=== PATIENT | male | born 1990 | race Caucasian/White ===

== ENCOUNTER 2017-03-05 06:36 | Emergency (ER) | payer SELFPAY ==
[2017-03-05] MEDS ORDERED: Lidocaine 1% INJ* 10 MG/ML 30 ML SDV INJ ONE (07:34)
[2017-03-05] MEDS ORDERED: Lidocaine 1%* 5 ML VIAL ONE (07:36)
[2017-03-05 08:19] VITALS: BP 150/70
--- NOTE | 2017-03-05 08:28 | ED ---
James Yadav Angela, scribed for Kulwinder Escamilla MD on 03/05/17 at 0742 . Laceration/Wound HPI - HPI Summary HPI Summary: This pt is a 26 y/o right-hand dominant male presenting to [facility] c/o a laceration on his right hand s/p cut with a carbide blade today at 6:00 AM. 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 He states the blade was brand new. Pt notes his hand is not currently painful. He has soaked his hand while in the ED for 20 minutes and bleeding has been controlled. His last tetanus shot is UTD (3 years ago). Pt is allergic to Codeine, he gets a GI upset. Pt denies any other injuries, decreased ROM of right hand, neurological deficits. - History of Current Complaint Stated Complaint: RIGHT HAND LAC Hx Obtained From: Patient Mechanism of Injury: Sharp/Blunt Trauma - with a carbide blade Onset/Duration: Sudden Onset Aggravating: Nothing Alleviating: Other - soaking Pain Intensity: 0 Associated Signs & Symptoms: Redness Related Hx: Dominant Hand (Right) - Additional Pertinent History Primary Care Physician: [id number] - Allergy/Home Medications Allergies/Adverse Reactions: Allergies Allergy/AdvReac Type Severity Reaction Status Date / Time Codeine Allergy Heartburn Verified 03/05/17 06:42 PMH/Surg Hx/FS Hx/Imm Hx Endocrine/Hematology History: Denies: Hx Diabetes Cardiovascular History: Denies: Hx Hypertension, Hx Pacemaker/ICD Respiratory History: Reports: Hx Asthma - as child Sensory History: Denies: Hx Contacts or Glasses, Hx Hearing Aid Opthamlomology History: Denies: Hx Contacts or Glasses Psychiatric History: Denies: Hx Panic Disorder - Surgical History Surgery Procedure, Year, and Place: ear tubes, LEFT SHOULDER SURGERY, APPENDECTOMY Hx Anesthesia Reactions: No - Immunization History Date of Tetanus Vaccine: 2014 Date of Influenza Vaccine: unknown Infectious Disease History: No Infectious Disease History: Denies: Traveled Outside the [place] in Last 30 Days - Family History Known Family History: Positive: Diabetes - Social History Alcohol Use: Rare Substance Use Type: Reports: None Smoking Status (MU): Never Smoked Tobacco Review of Systems Negative: Fever, Chills Negative: Epistaxis Negative: Palpitations, Chest Pain Negative: Shortness Of Breath Negative: Vomiting, Nausea Genitourinary: Negative Negative: Decreased ROM, Edema Positive: Other - Laceration on right hand Negative: Headache, Weakness All Other Systems Reviewed And Are Negative: Yes Physical Exam - Summary Physical Exam Summary: The patient is well-nourished in no acute distress and in no acute pain. Pt's tetanus is up to date. The skin is warm and dry and skin color reflects adequate perfusion. HEENT: The head is normocephalic and atraumatic. Neck is supple with full range of motion and non-tender. Respiratory: Chest is non-tender. Lungs are clear to auscultation and breath sounds are symmetrical and equal. Cardiovascular: Hear is regular rate and rhythm. There is no murmur or rub auscultated. There is no peripheral edema and pulses are symmetrical and equal. Musculoskeletal: Extremities are non-tender with full range of motion. There is good capillary refill. There is no peripheral edema or calf tenderness elicited. In the right upper extremity there is a 2.5 cm laceration in the dorsum of the right hand, 3 mm in width and 3 mm in depth. There is full range of motion of the right hand, and is able to extend and flex his hand. Neurological: Patient is alert and oriented to person, place and time. No neurological deficits. Psychiatric: The patient has an appropriate affect and does not exhibit any anxiety or depression. Triage Information Reviewed: Yes Vital Signs On Initial Exam: Initial Vitals Temp Pulse Resp BP Pulse Ox 98 F 75 16 156/72 97 03/05/17 06:44 03/05/17 06:44 03/05/17 06:44 03/05/17 06:44 03/05/17 06:44 Vital Signs Reviewed: Yes - Cathay Coma Scale Coma Scale Total: 15 Procedures - Laceration/Wound Repair 1 Location: upper extremity - Right hand Description: Linear - with clean edges Anesthesia: 1.0%, Lido - 3 cc of 1% lidocaine Length, Depth and Shape: 2.5 cm (length) x 3 mm (width) x 3 mm (depth) Laceration/Wound Explored: clean, no foreign body removed, Other - Wound is down to the muscle, but the muscle is intact. Suture Type: Prolene - 4.0 Number of Sutures: 8 Diagnostics - Vital Signs Vital Signs Temp Pulse Resp BP Pulse Ox 03/05/17 06:44 98 F 75 16 156/72 97 - Laboratory Lab Statement: Any lab studies that have been ordered have been reviewed, and results considered in the medical decision making process. Laceration Repair Course/Dx - Course Course Of Treatment: This pt is a 26 y/o right-hand dominant male presenting to [facility] c/o a laceration on his right hand s/p cut with a carbide blade today at 6 :00 AM. 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 He states the blade was brand new. Pt notes his hand is not currently painful. He has soaked his hand while in the ED for 20 minutes and bleeding has been controlled. His last tetanus shot is UTD (3 years ago). Pt is allergic to Codeine, he gets a GI upset. Pt denies any other injuries, decreased ROM of right hand, neurological deficits. Elevated BP noted. A laceration repair was performed with 3 cc of 1% lidocaine and 4.0 of Prolene. The laceration is of 2.5 cm in length, 3 mm in width, and 3 mm in depth. The wound is down to the muscle but the muscle is intact. There is no foreign body noted. Pt tolerated the procedure well and will follow up with PCP. - Clinical Impression Provider Diagnoses: laceration repair of right hand Discharge - Discharge Plan Condition: Stable Disposition: HOME Patient Education Materials: Care For Your Stitches (ED) Referrals: Darwin Claros MD [Primary Care Provider] - Additional Instructions: Your blood pressure was elevated during todays visit. Please follow up with your primary care provider. Clean the wound twice every day with soap and water. Keep your wound covered at all times. Please have your stitches removed by your PCP in 10-14 days. The documentation as recorded by the James lucia Angela accurately reflects the service I personally performed and the decisions made by , Kulwinder Escamilla MD.
== END 2017-03-05 08:19 | disposition home or self-care (01) ==
LOC: ED 06:36
DX: S61.411A Laceration without foreign body of right hand, initial encounter (principal); W26.0XXA Contact with knife, initial encounter; Y93.89 Activity, other specified; Y92.9 Unspecified place or not applicable; Y99.9 Unspecified external cause status
CPT/HCPCS: 12001; 96374; 99283

== ENCOUNTER 2017-09-10 14:21 | Emergency (ER) | payer SELFPAY ==
[2017-09-10] MEDS ORDERED: NS 0.9% 1000 ML* 1,000 ML IV ONE (14:40)
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
[2017-09-10 15:29] LABS: ABS Basophils 0 10^3/ul (0-0.2); ABS Eosinophils 0.1 10^3/ul (0-0.6); ABS Lymphocytes 1.3 10^3/ul (1.0-4.8); ABS Monocytes 0.9 10^3/ul (0-0.8); ABS Neutrophils 12.4 10^3/ul (1.5-7.7); ABS Nucleated RBC 0 10^3/ul; Eosinophil % 0.4 % (0-6); Hematocrit 42 % (42-52); Lymphocyte % 8.7 % (25-47); Mean Corpuscular HGB Conc 35 g/dl (31-36); Mean Corpuscular Hemoglobin 32 pg (27-31); Mean Corpuscular Volume 90 fL (80-94); Mean Platelet Volume 8 um3 (7.4-10.4); Nucleated Red Blood Cells % 0; Platelet Count 230 10^3/ul (150-450); Red Blood Count 4.72 10^6/ul (4.0-5.4); Red Cell Distribution Width 13 % (10.5-15); White Blood Count 14.7 10^3/ul (3.5-10.8)
[2017-09-10 15:39] LABS: EGFR Non-African American 103.3 (>60)
[2017-09-10] MEDS ORDERED: Ketorolac INJ* 30 MG/ML 1 ML VIAL IM ONE (16:25)
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
[2017-09-10 19:19] VITALS: BP 154/70
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
== END 2017-09-10 19:18 | disposition home or self-care (01) ==
LOC: ED 14:21
DX: S06.0X9A Concussion with loss of consciousness of unspecified duration, initial encounter (principal); M25.512 Pain in left shoulder; V49.49XA Driver injured in collision with other motor vehicles in traffic accident, initial encounter; Y92.410 Unspecified street and highway as the place of occurrence of the external cause; Z90.89 Acquired absence of other organs
CPT/HCPCS: 36415; 70450; 71046; 80053; 80320; 82550; 83605; 85025; 93005; 96374; 99283; G0480; J1885

== ENCOUNTER 2017-09-16 15:42 | Emergency (ER) | payer OTHER ==
[2017-09-16 16:00] VITALS: BP 157/79
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
== END 2017-09-16 17:03 ==
LOC: UCEAST 15:42
DX: R07.89 Other chest pain (principal); R51 Headache; M25.512 Pain in left shoulder; Z88.5 Allergy status to narcotic agent
CPT/HCPCS: 99212; G0463

== ENCOUNTER 2017-09-16 17:16 | Emergency (ER) | payer OTHER ==
[2017-09-16] MEDS ORDERED: Acetaminophen TAB* 325 MG PO ONE (18:28)
[2017-09-16 18:54] LABS: ABS Basophils 0.1 10^3/ul (0-0.2); ABS Eosinophils 0.1 10^3/ul (0-0.6); ABS Lymphocytes 2.1 10^3/ul (1.0-4.8); ABS Monocytes 0.6 10^3/ul (0-0.8); ABS Neutrophils 4.6 10^3/ul (1.5-7.7); ABS Nucleated RBC 0 10^3/ul; Eosinophil % 1.2 % (0-6); Hematocrit 44 % (42-52); Hemoglobin 15.3 g/dl (14.0-18.0); Lymphocyte % 27.7 % (25-47); Mean Corpuscular HGB Conc 35 g/dl (31-36); Mean Corpuscular Hemoglobin 32 pg (27-31); Mean Corpuscular Volume 90 fL (80-94); Mean Platelet Volume 8 um3 (7.4-10.4); Nucleated Red Blood Cells % 0; Platelet Count 228 10^3/ul (150-450); Red Blood Count 4.85 10^6/ul (4.0-5.4); Red Cell Distribution Width 13 % (10.5-15); White Blood Count 7.4 10^3/ul (3.5-10.8)
[2017-09-16 18:56] LABS: INR 0.9 (0.77-1.02)
[2017-09-16 19:18] LABS: EGFR Non-African American 106.1 (>60)
[2017-09-16] MEDS ORDERED: Iohexol 300* (CONTRAST) 10 ML SDV IV ONE (19:22)
[2017-09-16 19:28] LABS: Urine Appearance Clear; Urine Blood 1+ (Negative); Urine Color Straw; Urine Ketones Negative (Negative); Urine Protein Negative (Negative); Urine Specific Gravity 1.005 (1.010-1.030); Urine Urobilinogen Negative (Negative)
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
[2017-09-16] MEDS ORDERED: Ketorolac INJ* 30 MG/ML 1 ML VIAL IV PUSH ONE (20:40)
[2017-09-16 21:11] VITALS: BP 140/65
== END 2017-09-16 21:10 | disposition home or self-care (01) ==
LOC: ED 17:16
DX: S39.012A Strain of muscle, fascia and tendon of lower back, initial encounter (principal); R07.9 Chest pain, unspecified; R51 Headache; R07.89 Other chest pain; V49.49XA Driver injured in collision with other motor vehicles in traffic accident, initial encounter; Y92.481 Parking lot as the place of occurrence of the external cause
CPT/HCPCS: 36415; 71260; 74177; 80053; 81003; 81015; 82550; 83605; 83735; 84484; 85025; 85610; 93005; 96374; 99283; A9270-GY; J1885; Q9967